=== PATIENT | male | born 1995 | race Caucasian/White ===

== ENCOUNTER 2022-12-06 11:33 | Emergency (ER) | payer OTHER, SELFPAY ==
[2022-12-06 11:37] VITALS: BP 130/86; PULSE 69; RESP 18; TEMP 36.9; O2SAT 99; BMI 23.0
--- NOTE | 2022-12-06 12:04 | CRLHL7_ITS ---
For Patients: As a result of the Century Cures Act, medical imaging exams and procedure reports are released immediately into your electronic medical record. You may view this report before your referring provider. If you have questions, please contact your health care provider. Indication: Epigastric pain, pressure for 3 days Technique: CT abdomen and pelvis without IV contrast Please note that all CT scans at this facility use dose modulation, iterative reconstruction, and/or weight-based dosing when appropriate to reduce radiation dose to as low as reasonably achievable. Comparison: None Findings: Lung bases are clear. Normal heart size. No pericardial effusion. Normal liver size and contour. No suspicious hepatic lesions. Portal veins patent. Gallbladder unremarkable. No biliary dilatation. Adrenal glands, kidneys, spleen, pancreas, stomach and duodenum appear normal. Normal course and caliber of the abdominal aorta and the IVC. The aortic side branches and renal veins appear patent. No lymphadenopathy. The bladder and prostate unremarkable. Prior left inguinal hernia repair. No bowel obstruction or bowel wall thickening. The appendix is prominent and mildly hyperemic measuring up to 1.1 cm (series 2, image 94). There is minimal adjacent fat stranding. No abscess. No perforation. No acute osseous abnormality. No body wall abnormality. Impression: Dilated, mildly hyperemic appendix with minimal adjacent fat stranding suspicious for early acute appendicitis. Please note that all CT scans at this facility use dose modulation, iterative reconstruction, and/or weight-based dosing when appropriate to reduce radiation dose to as low as reasonably achievable. Dictated by Murtaza Garland MD @ 12/06/2022 1:06:20 PM (Electronically Signed)
--- NOTE | 2022-12-06 12:05 | ED.ABDPAIN ---
HPI - Abdominal Pain General Chief Complaint: Abdominal Pain Stated Complaint: abdominal pain Time Seen by Provider: 12/06/22 11:50 History of Present Illness HPI narrative: This 27-year-old male comes in with pressure and discomfort in his upper epigastric region and more diffusely throughout his abdomen over the past few days. He arrives with normal vital signs. He does not report any heartburn symptoms. He admits that he has fearful that he might have esophageal cancer. He reports that he chews tobacco. This is what makes him fearful of that diagnosis. He states that he has not had much of an appetite in the past day. He does not report any fever, nausea, vomiting, altered bowel function. Related Data Previous Rx's Medication Instructions Recorded amoxicillin 875 mg-potassium 1 tab PO BID #20 tabs 12/06/22 clavulanate 125 mg tablet Allergies Allergy/AdvReac Type Severity Reaction Status Date / Time No Known Drug Allergies Allergy Verified 12/06/22 12:15 Review of Systems Status of ROS Reports: 10 or more systems reviewed and unremarkable except as noted in History and below Narrative Constitutional: No fevers, no weight gain or loss. Eyes: No discharge. No vision changes. HENT: No congestion, no sore throat, no ear pain. Cardiovascular: No chest pain, no palpitations. Respiratory: No shortness of breath, no wheezes, no cough. Gastrointestinal: No vomiting, no diarrhea. Abdominal pain or pressure in the upper epigastric region and diffusely around the abdomen. Genitourinary: No dysuria, no hematuria. Musculoskeletal: Normal range of motion. Skin: No rashes, no pruritis. Neurological: No dizziness, weakness, sensory change, speech change. Endo/Heme/Allergies: No bruising or bleeding. No polydipsia. Pysch: no suicidality, no anxiety, no insomnia. All other systems reviewed and are negative. PFSH PFSH Social History Smoking Status: Never smoker How often do you have a drink containing alcohol: 2-3 times a week How many standard drinks containing alcohol do you have on a typical day: 1 or 2 How often do you have six or more drinks on one occasion: Never AUDIT-C Alcohol total score: 3 Non-prescribed substance use: denies use Exam Narrative: Exam Narrative: Constitutional: Well-developed, well-nourished, no acute distress. HEENT: Normocephalic, atraumatic. Neck: Normal range of motion. Nontender. Supple. Heart: Regular. No murmurs. Normal rate. Intact distal pulses. Lungs: Clear to auscultation. No chest discomfort. No wheezes, rhonchi, or rales. Abdomen: Normal bowel sounds. Mild tenderness. No rebound tenderness. Genitalia: Deferred. Back: No midline tenderness. Normal range of motion. Extremities: Normal range of motion. No injury. Skin: Intact. No rash. Warm. No erythema or pallor. Neurologic: No altered sensation. No weakness. Alert and oriented. Psychiatric: No suicidality. No anxiety or depression. No insomnia. Nursing notes and vitals signs are reviewed. Const: Vital Signs, click to edit/add: Vital Signs - 24 hr 12/06/22 11:37 12/06/22 13:27 Temperature 98.4 F 97.4 F L Pulse Rate [Right Pulse Oximeter] 69 43 L Respiratory Rate 18 Blood Pressure [Ri ght Upper Arm] 130/86 111/68 Pulse Oximetry 99 99 Oxygen Delivery Me thod Room Air Room Air Course Vital Signs Vital signs: Initial Vital Signs Temperature 98.4 F 12/06/22 11:37 Temperature Source Temporal Artery Scan 12/06/22 11:37 Pulse Rate 69 12/06/22 11:37 Respiratory Rate 18 12/06/22 11:37 Blood Pressure 130/86 12/06/22 11:37 Blood Pressure Mean 100 12/06/22 11:37 Blood Pressure Position Sitting 12/06/22 11:37 Pulse Oximetry 99 12/06/22 11:37 Oxygen Delivery Method Room Air 12/06/22 11:37 Vital Signs Temperature 98.4 F 12/06/22 11:37 Pulse Rate 69 12/06/22 11:37 Respiratory Rate 18 12/06/22 11:37 Blood Pressure 130/86 12/06/22 11:37 Pulse Oximetry 99 12/06/22 11:37 Oxygen Delivery Method Room Air 12/06/22 11:37 Temperature 97.4 F L 12/06/22 13:27 Pulse Rate 43 L 12/06/22 13:27 Respiratory Rate 18 12/06/22 11:37 Blood Pressure 111/68 12/06/22 13:27 Pulse Oximetry 99 12/06/22 13:27 Oxygen Delivery Method Room Air 12/06/22 13:27 MDM - Abdominal Pain MDM Narrative Medical decision making narrative: This patient comes in with rather soft symptoms with the complaint of loss of appetite and some feeling of pressure in his abdomen. He arrives with normal vital signs. His primary concern is that he chews tobacco and is worried that he might have esophageal cancer. For this reason I did do his CT scan of his abdomen and pelvis. This returns with normal findings except for a mildly dilated appendix with some surrounding stranding that may indicate early acute appendicitis. The patient's exam in his right lower quadrant is rather benign. He does not have rebound tenderness or Rovsing sign. I did re-examine him an IM able again to palpate rather deeply over McBurney's point. I did speak with the surgeon on-call who stated that it would be okay for him to go home on Augmentin or if he wishes he can have his appendix removed. The patient is opting to go home on a Augmentin. His white count is 6. I did describe signs or symptoms that would indicate a need for return and re-evaluation. Lab Data Labs: Lab Results 12/06/22 Range/Units 12:10 WBC 5.95 (4.50-11.00) K/uL RBC 5.19 (4.30-5.90) m/uL Hgb 16.0 (13.5-17.5) gm/dL Hct 47.0 (37.0-53.0) % MCV 91 (80-100) fL MCH 31 (26-34) pg MCHC 34 (32-36) gm/dL RDW Coeff of Raul 11.5 (11.5-15.5) % Plt Count 250 (140-440) K/uL Neut % (Auto) 74.5 H (42.0-72.0) % Lymph % (Auto) 17.1 L (20-44) % [place] % (Auto) 5.5 (0.0-11.0) % Eos % (Auto) 1.7 (0.0-7.0) % Baso % (Auto) 0.5 (0.0-3.0) % Neut # (Auto) 4.40 (1.7-7.0) K/uL Lymph # (Auto) 1.00 (0.90-2.90) K/uL [place] # (Auto) 0.30 (0.00-0.90) K/UL Eos # (Auto) 0.10 (0.00-0.50) K/uL Baso # (Auto) 0.03 (0.00-0.30) K/uL Abs Immat Gran (auto) 0.04 (0.00-0.30) K/uL Imm/Tot Granulo (auto) 0.7 % Sodium 140 (135-149) mmol/L Potassium 4.1 (3.6-5.1) mmol/L Chloride 103 (96-114) mmol/L Carbon Dioxide 25 (20-32) mmol/L BUN 14 (5-24) mg/dL Creatinine 0.9 (0.5-1.5) mg/dL Estimated Creat Clear 126.56 Estimated GFR 120 ml/min Glucose 102 (60-115) mg/dL Calcium 9.5 (8.4-10.6) mg/dL Imaging Data CT scan - abdomen: Radiologist's impression: Dilated, mildly hyperemic appendix with minimal adjacent fat stranding suspicious for early acute appendicitis. Discharge Plan Discharge Clinical Impression: Abdominal pain Patient Disposition: Home, Self-Care Condition: Unchanged Additional Instructions: Take medication as prescribed. Avoid tobacco products. Follow up with MD or return if symptoms are persistent or worsening. Prescriptions: New amoxicillin-pot clavulanate 875-125 mg tablet 1 tab PO BID Qty: 20 0RF Follow Up/Referrals: Provider,Not a Local [Primary Care Provider] - Stand Alone Forms: [employer] Info Instructions
[2022-12-06 12:22] LABS: Basophils Absolute Auto 0.03 K/uL (0.00-0.30); Basophils Percent Auto 0.5 % (0.0-3.0); Eosinophils Percent Auto 1.7 % (0.0-7.0); Immature Granulocytes Abs Auto 0.04 K/uL (0.00-0.30); Immature Granulocytes Pct Auto 0.7 %; Lymphocytes Percent Auto 17.1 % (20-44); Mean Corpuscular HGB Conc 34 gm/dL (32-36); Mean Corpuscular Hemoglobin 31 pg (26-34); Mean Corpuscular Volume 91 fL (80-100); Monocytes Percent Auto 5.5 % (0.0-11.0); Neutrophils Percent Auto 74.5 % (42.0-72.0); Platelet Count* 250 K/uL (140-440); RDW Coefficient of Variation % 11.5 % (11.5-15.5); Red Blood Count 5.19 m/uL (4.30-5.90); White Blood Count* 5.95 K/uL (4.50-11.00)
[2022-12-06 12:30] LABS: Slide Review Reflex No
[2022-12-06 12:32] LABS: Chloride* 103 mmol/L (96-114)
[2022-12-06 12:33] LABS: Potassium* 4.1 mmol/L (3.6-5.1); Sodium* 140 mmol/L (135-149)
[2022-12-06 12:35] LABS: Creatinine* 0.9 mg/dL (0.5-1.5); Est. Creatinine Clearance* 126.56; Estimated Glomerular Filt Rate 120 ml/min
[2022-12-06 12:36] LABS: Blood Urea Nitrogen* 14 mg/dL (5-24); Calcium* 9.5 mg/dL (8.4-10.6); Carbon Dioxide* 25 mmol/L (20-32); Glucose* 102 mg/dL (60-115)
[2022-12-06 13:27] VITALS: BP 111/68; PULSE 43; TEMP 36.3; O2SAT 99
--- NOTE | 2022-12-06 13:28 | ED.NURSE ---
Pt HR noted to be 43 during vitals recheck. EKG done and shown to .
== END 2022-12-06 14:41 | disposition home or self-care (01) ==
PROVIDERS: Emergency Provider Emergency Medicine Emergency Medical Services
DX: R10.13 Epigastric pain (principal)
CPT/HCPCS: 36415; 74177; 80048; 85025; 93005; 99284; Q9967

== ENCOUNTER 2022-12-08 00:18 | Day surgery (SDC) | payer OTHER, SELFPAY ==
[2022-12-08] VITALS (19 sets, daily range): BP systolic 109–129; BP diastolic 61–82; PULSE 36–75; RESP 14–18; TEMP 36.2–36.7; O2SAT 97–100
--- NOTE | 2022-12-08 01:13 | CRLHL7_ITS ---
For Patients: As a result of the Century Cures Act, medical imaging exams and procedure reports are released immediately into your electronic medical record. You may view this report before your referring provider. If you have questions, please contact your health care provider. INDICATION: Worsening appendicitis. TECHNIQUE: CT abdomen and pelvis acquired with 100 cc Omnipaque 350 IV contrast. COMPARISON: December 06, 2022. FINDINGS: Lower chest: Scattered atelectasis. Liver: Unremarkable. Normal in size and attenuation. No suspicious masses. Gallbladder and bile ducts: Unremarkable. No stones or inflammation. No biliary dilatation. Pancreas: Unremarkable. No mass or inflammation. Spleen: Unremarkable. Normal in size. No masses. Adrenal glands: Unremarkable. No nodules. Kidneys: Unremarkable. No suspicious masses, stones, or hydronephrosis. GI tract: No bowel obstruction. Re-demonstration of similar mildly enlarged/hyperemic appendix with minimal fat stranding. Vasculature: Abdominal aorta is normal in caliber. Mesenteric arteries are patent. Lymph nodes: No lymphadenopathy. Peritoneum/Abdominal Wall: Unremarkable. No sign of mass or infiltration. No free air or significant free fluid. Pelvis: Unremarkable. Bones: Unremarkable for age. IMPRESSION: Similar appearing prominent/hyperemic appendix with fat stranding thought to represent early appendicitis. No drainable fluid collections or significant interval change when compared to prior study. Please note that all CT scans at this facility use dose modulation, iterative reconstruction, and/or weight-based dosing when appropriate to reduce radiation dose to as low as reasonably achievable. Dictated by nAtoine Morrell MD @ 12/08/2022 2:23:29 AM (Electronically Signed)
--- NOTE | 2022-12-08 01:16 | ED_ITS ---
HPI - General Adult General Chief complaint: Abdominal Pain Stated complaint: appendicitis getting worse Time Seen by Provider: 12/08/22 01:00 Source: patient and family Mode of arrival: ambulatory History of Present Illness HPI narrative: 27-year-old male presents to the emergency department with worsening abdominal pain. He was evaluated a little over 24 hours ago, was having epigastric area pain at that time. CT scan did show an early appendicitis. Since he was not tender over the lower abdomen, decision was made to start him on Augmentin and see where things progress. He reports that over the last few hours he has started to have some tenderness in the right lower quadrant area. There is no nausea or vomiting. No diarrhea, no blood in his stools. No fever. He has not tried Tylenol or ibuprofen to help with his symptoms. Last meal was 6:00 p.m. on 12/07. Does not use anticoagulants. Has tolerated general anesthesia in the past with no complications. No family history of anesthesia complications, no history of DVT or PE. Nonsmoker but does occasionally chew tobacco. No history of chronic lung disease or asthma. No long-term health problems. No prescription medications. Prior surgical history notable for inguinal hernia repairs back in July, uncomplicated as well as wisdom tooth extraction. Related Data Previous Rx's Medication Instructions Recorded amoxicillin 875 mg-potassium 1 tab PO BID #20 tabs 12/06/22 clavulanate 125 mg tablet Allergies Allergy/AdvReac Type Severity Reaction Status Date / Time No Known Drug Allergies Allergy Verified 12/06/22 12:15 [facility] Social History Smoking Status: Never smoker Do you use any of these nicotine containing products: None How often do you have a drink containing alcohol: 2-3 times a week How many standard drinks containing alcohol do you have on a typical day: 1 or 2 How often do you have six or more drinks on one occasion: Never AUDIT-C Alcohol total score: 3 Non-prescribed substance use: denies use service: No Exam Const: Vital Signs, click to edit/add: Vital Signs - 24 hr 12/08/22 00:23 12/08/22 05:28 12/08/22 05:33 Temperature 98.0 F 97.6 F Pulse Rate [Left F emoral] 61 54 L Pulse Rate [Right Pulse Oximeter] 54 L Respiratory Rate 16 16 Blood Pressure [Ri ght Upper Arm] 122/77 111/61 Pulse Oximetry 100 100 Oxygen Delivery Me thod Room Air Room Air Documenting provider has reviewed patient's vital signs: yes Common normals: no apparent distress and alert General appearance: cooperative, comfortable and well kempt Orientation/consciousness: Yes awake HENMT: Common normals: normocephalic and head/scalp atraumatic Head and scalp: normocephalic and atraumatic Face and sinus: normal facial exam Mouth: oral and palatal mucosa normal Throat: posterior oropharynx normal Eye: Common normals: PERRL and conjunctivae normal Conjunctiva: conjunctiva(e) normal Pupil: PERRL Neck & C-Spine: Common normals: full ROM and no lymphadenopathy Resp: Common normals: normal respiratory effort, no use of accessory muscles and clear to auscultation bilaterally Effort & inspection: able to speak in complete sentences Auscultation: clear to auscultation bilaterally Cardio: Common normals: regular rate, regular rhythm, S1 normal heart sound, S2 normal heart sound and no murmurs Rate: regular rate Rhythm: regular rhythm Heart sounds: S1 normal and S2 normal GI: Common normals: Normal to inspection, nondistended, normoactive bowel sounds present, soft to palpation and no masses Palpation: soft Other: Mildly tender to right lower quadrant. Certainly no rebound tenderness or guarding. Extremity: Common normals: normal to inspection, full ROM and normal capillary refill Neuro: Sensorium/orientation: awake and alert Speech: speech normal Gait (neuro): normal gait Motor exam: no tremor noted and no movement abnormalities noted Psych: Appearance: well kempt Activity/motor behavior: appropriate eye contact Mood and affect: euthymic mood Insight: insight good Judgement: judgment good Skin: Common normals: no rashes or lesions noted General skin exam: no rashes or lesions noted Course Course Hospital Course: Differential diagnosis including appendicitis, gastroenteritis, gastritis, pancreatitis, musculoskeletal injury, shingles, among others. I spoke with Dr. Vargas, general surgery. She would like to go ahead and repeat the CT as well as blood work. This will be done. She does make it sound as though we may have difficulty squeezing in his surgical case in the morning if needed. Because of this I would like to go ahead and start some Zosyn, LR, he will be made NPO. Prior note from 12/06 reviewed. He declines pain medication or anti nausea medication at this time. Reevaluation(s) Reevaluation #1: Patient continues to have no pain. He has completed Zosyn, will continue on maintenance fluid. Surgeon has requested update at 4:30 a.m. with the results with intent to take him to the OR shortly later. He is medically cleared at this time. No additional perioperative recommendations. Vital Signs Vital signs: Initial Vital Signs Temperature 98.0 F 12/08/22 00:23 Temperature Source Temporal Artery Scan 12/08/22 00:23 Pulse Rate 61 12/08/22 00:23 Pulse Rhythm Regular 12/08/22 00:23 Respiratory Rate 16 12/08/22 00:23 Blood Pressure 122/77 12/08/22 00:23 Blood Pressure Mean 92 12/08/22 00:23 Blood Pressure Position Sitting 12/08/22 00:23 Pulse Oximetry 100 12/08/22 00:23 Oxygen Delivery Method Room Air 12/08/22 00:23 Vital Signs Temperature 98.0 F 12/08/22 00:23 Pulse Rate 61 12/08/22 00:23 Respiratory Rate 16 12/08/22 00:23 Blood Pressure 122/77 12/08/22 00:23 Pulse Oximetry 100 12/08/22 00:23 Oxygen Delivery Method Room Air 12/08/22 00:23 Temperature 97.6 F 12/08/22 05:28 Pulse Rate 54 L 12/08/22 05:33 Respiratory Rate 16 12/08/22 05:28 Blood Pressure 111/61 12/08/22 05:28 Pulse Oximetry 100 12/08/22 05:28 Oxygen Delivery Method Room Air 12/08/22 05:28 Medical Decision Making Lab Data Lab results reviewed: Yes I reviewed the patient's lab results Lab results narrative: All reassuring. Labs: Lab Results 12/08/22 Range/Units 01:05 WBC 5.99 (4.50-11.00) K/uL RBC 4.89 (4.30-5.90) m/uL Hgb 15.3 (13.5-17.5) gm/dL Hct 44.2 (37.0-53.0) % MCV 90 (80-100) fL MCH 31 (26-34) pg MCHC 35 (32-36) gm/dL RDW Coeff of Raul 11.4 L (11.5-15.5) % Plt Count 226 (140-440) K/uL Neut % (Auto) 62.5 (42.0-72.0) % Lymph % (Auto) 23.4 (20-44) % [place] % (Auto) 9.0 (0.0-11.0) % Eos % (Auto) 3.3 (0.0-7.0) % Baso % (Auto) 0.3 (0.0-3.0) % Neut # (Auto) 3.74 (1.7-7.0) K/uL Lymph # (Auto) 1.40 (0.90-2.90) K/uL [place] # (Auto) 0.50 (0.00-0.90) K/UL Eos # (Auto) 0.20 (0.00-0.50) K/uL Baso # (Auto) 0.02 (0.00-0.30) K/uL Abs Immat Gran (auto) 0.09 (0.00-0.30) K/uL Imm/Tot Granulo (auto) 1.5 % Sodium 137 (135-149) mmol/L Potassium 3.6 (3.6-5.1) mmol/L Chloride 104 (96-114) mmol/L Carbon Dioxide 23 (20-32) mmol/L BUN 14 (5-24) mg/dL Creatinine 0.8 (0.5-1.5) mg/dL Estimated GFR 124 ml/min Glucose 92 (60-115) mg/dL Lactate 0.7 (0.5-1.9) mmol/L Calcium 8.9 (8.4-10.6) mg/dL C-Reactive Protein < 0.5 L (0.5-1.0) mg/dL Imaging Data CT scan - abdomen: Attestation: I have reviewed the pertinent imaging results. My impression: Stable early appendicitis, no signs of rupture or fluid collection Radiologist's impression: IMPRESSION: Similar appearing prominent/hyperemic appendix with fat stranding thought to represent early appendicitis. No drainable fluid collections or significant interval change when compared to prior study. Discharge Plan Discharge Clinical Impression: Acute appendicitis Patient Disposition: XFER to OR Condition: Stable
[2022-12-08 01:34] LABS: Lactate* 0.7 mmol/L (0.5-1.9)
[2022-12-08] MEDS: LACTATED RINGERS 1000 ML 1,000 ML 200 ML IV (01:34)
[2022-12-08 01:36] LABS: Basophils Absolute Auto 0.02 K/uL (0.00-0.30); Basophils Percent Auto 0.3 % (0.0-3.0); Eosinophils Percent Auto 3.3 % (0.0-7.0); Hematocrit 44.2 % (37.0-53.0); Hemoglobin* 15.3 gm/dL (13.5-17.5); Immature Granulocytes Abs Auto 0.09 K/uL (0.00-0.30); Immature Granulocytes Pct Auto 1.5 %; Lymphocytes Percent Auto 23.4 % (20-44); Mean Corpuscular HGB Conc 35 gm/dL (32-36); Mean Corpuscular Hemoglobin 31 pg (26-34); Mean Corpuscular Volume 90 fL (80-100); Neutrophils Absolute Auto 3.74 K/uL (1.7-7.0); Neutrophils Percent Auto 62.5 % (42.0-72.0); Platelet Count* 226 K/uL (140-440); RDW Coefficient of Variation % 11.4 % (11.5-15.5); Red Blood Count 4.89 m/uL (4.30-5.90); White Blood Count* 5.99 K/uL (4.50-11.00)
[2022-12-08 01:37] LABS: Slide Review Reflex No
[2022-12-08 01:50] LABS: Chloride* 104 mmol/L (96-114); Potassium* 3.6 mmol/L (3.6-5.1); Sodium* 137 mmol/L (135-149)
[2022-12-08 01:52] LABS: Creatinine* 0.8 mg/dL (0.5-1.5); Estimated Glomerular Filt Rate 124 ml/min
[2022-12-08 01:53] LABS: Blood Urea Nitrogen* 14 mg/dL (5-24); Carbon Dioxide* 23 mmol/L (20-32)
[2022-12-08 01:54] LABS: Calcium* 8.9 mg/dL (8.4-10.6); Glucose* 92 mg/dL (60-115)
[2022-12-08] MEDS: PIPERACILLIN/TAZOBACTAM 3.375 GM in 0.9 % SODIUM CHLORIDE Mini-bag 100 ML IVPB (01:55)
[2022-12-08 01:57] LABS: C Reactive Protein* < 0.5 mg/dL (0.5-1.0)
--- NOTE | 2022-12-08 05:39 | PM.GSCN ---
History of Present Illness Consult details Date Seen: 12/08/22 Consult date: 12/08/22 Narrative: 27-year-old male presented to emergency room with abdominal pain and I was asked by Dr. Cortes to see him in consultation. Patient initially presented on Thursday with ?indigestion?. Patient complained of heartburn and loss of appetite for 3 days. He had some discomfort in epigastrium. His WBC was found to be normal and an abdominal CT was obtained that showed minimal inflammation near the appendix. At that time patient did not have significant tenderness to palpation in his abdomen. Choices of treatment with antibiotics or surgery were presented to the patient, and patient elected to have antibiotics. Patient was discharged home and for 24 hours stated that his pain improved. However yesterday the pain got significantly worse. He described is at as episodes of sharp pain. The pain now was located in the right lower quadrant. He is not sure what was making the pain worse or better. He continued to have anorexia. He denies any fevers. Upon his workup in the emergency room his WBC remained normal. An abdominal CT was repeated and showed prominent wall enhancing appendix with minimal periappendiceal inflammation. The small and large intestine was without any evidence of obstruction. Review of Systems Narrative: General: no fevers HENT: no problems swallowing CV: no shortness of breath Resp: no cough GI: See above : no dysuria, no increased urinary frequency, no hematuria Skin: no new rashes Musculoskeletal: no back pain Neuro: no muscle weakness Psyche: no depression, no anxiety PFSH PFSH Social History Smoking Status: Never smoker Do you use any of these nicotine containing products: None How often do you have a drink containing alcohol: 2-3 times a week How many standard drinks containing alcohol do you have on a typical day: 1 or 2 How often do you have six or more drinks on one occasion: Never AUDIT-C Alcohol total score: 3 Non-prescribed substance use: denies use service: No Meds Home Medications and Allergies Allergies Allergy/AdvReac Type Severity Reaction Status Date / Time No Known Drug Allergies Allergy Verified 12/06/22 12:15 Exam Narrative: Exam Narrative: General appearance: Alert, cooperative, and in no distress Pulmonary: Chest symmetric, lungs clear bilaterally Cardiovascular Heart: Regular rate and rhythm, S1, S2, no murmurs/rubs/gallops Gastrointestinal Abdominal: soft, not distended, tender to palpation in epigastrium and right lower quadrant with minimal rebound tenderness. Skin: Normal skin color, texture, and turgor. No rashes or lesions. Psychiatric: Alert, cooperative, normal affect. Const: Vital Signs, click to edit/add: Vital Signs - 24 hr 12/08/22 00:23 12/08/22 05:28 12/08/22 05:33 Temperature 98.0 F 97.6 F Pulse Rate [Left F emoral] 61 54 L Pulse Rate [Right Pulse Oximeter] 54 L Respiratory Rate 16 16 Blood Pressure [Ri ght Upper Arm] 122/77 111/61 Pulse Oximetry 100 100 Oxygen Delivery Me thod Room Air Room Air Results Labs Labs: Abnormal lab results 12/08/22 Range/Units 01:05 RDW Coeff of Raul 11.4 L (11.5-15.5) % C-Reactive Protein < 0.5 L (0.5-1.0) mg/dL Diabetes panel 12/08/22 Range/Units 01:05 Sodium 137 (135-149) mmol/L Potassium 3.6 (3.6-5.1) mmol/L Chloride 104 (96-114) mmol/L Carbon Dioxide 23 (20-32) mmol/L BUN 14 (5-24) mg/dL Creatinine 0.8 (0.5-1.5) mg/dL Glucose 92 (60-115) mg/dL Calcium 8.9 (8.4-10.6) mg/dL Calcium panel 12/08/22 Range/Units 01:05 Calcium 8.9 (8.4-10.6) mg/dL Pituitary panel 12/08/22 Range/Units 01:05 Sodium 137 (135-149) mmol/L Potassium 3.6 (3.6-5.1) mmol/L Chloride 104 (96-114) mmol/L Carbon Dioxide 23 (20-32) mmol/L BUN 14 (5-24) mg/dL Creatinine 0.8 (0.5-1.5) mg/dL Glucose 92 (60-115) mg/dL Calcium 8.9 (8.4-10.6) mg/dL Adrenal panel 12/08/22 Range/Units 01:05 Sodium 137 (135-149) mmol/L Potassium 3.6 (3.6-5.1) mmol/L Chloride 104 (96-114) mmol/L Carbon Dioxide 23 (20-32) mmol/L BUN 14 (5-24) mg/dL Creatinine 0.8 (0.5-1.5) mg/dL Glucose 92 (60-115) mg/dL Calcium 8.9 (8.4-10.6) mg/dL All other labs normal. Assessment and Plan Assessment and plan (1) Abdominal pain: Status: Acute Plan 27-year-old male presents with abdominal pain that is suspicious for subacute appendicitis. I discussed with the patient and his his laboratory and imaging findings. Patient's symptoms are not typical of appendicitis given the duration of his symptoms for several days. However his abdominal CT today shows increased prominence of the appendix when compared to the CT done 2 days ago. His white count remains normal. Since patient failed outpatient treatments antibiotics, I recommended to proceed with laparoscopic appendectomy. The procedure was discussed in detail. The risks associated procedure including infection, bleeding, injury to intra-abdominal organs, and the need for additional procedures were all discussed with the patient, he agreed to proceed.
[2022-12-08] MEDS: CEFAZOLIN 1 GM inj IVP (05:55)
[2022-12-08] MEDS: BUPIVACAINE 0.25% 30 ML INJECTION (06:05)
--- NOTE | 2022-12-08 06:53 | PM.GSPRC ---
Operative Note Date of procedure: 12/08/22 Pre-op diagnosis: 1. Subacute appendicitis. Post-op diagnosis: Same Type of Procedure: 1. Laparoscopic appendectomy. Indications: 27-year-old male presented to emergency room with several days of abdominal pain that started in epigastrium and migrated there was her quadrant. Patient had anorexia but denies fevers. On his initial presentation to the emergency room 2 days ago he was found to have a normal WBC. An abdominal CT was obtained that showed minimal inflammatory changes near wall enhancing appendix. Patient was discharged home on oral antibiotics. His pain improved for 24 hours but then returned and was more severe. Patient re-presented to the emergency room last night with right lower quadrant abdominal pain. A repeat CT showed wall enhancing appendix with minimal periappendiceal inflammation with no periappendiceal abscess. On clinical exam patient had tenderness to palpation in epigastrium and right lower quadrant with no peritoneal signs. Given patient's clinical history and his failure with antibiotic treatment, laparoscopic appendectomy was recommended. The procedure was discussed in detail. The risks associated procedure including infection, bleeding, injury to intra-abdominal organs were all discussed with the patient, he agreed to proceed. Procedure Description: After discussing the risks and benefits of the procedure, the patient signed informed consent.? The operative site was marked and the patient was brought to the operating room and placed on the operating table in supine position.? Care was taken to pad the patient's pressure points.?? The patient was then intubated by anesthesia.?? The operative site was then prepped and draped in the usual sterile fashion.? A time-out was then performed. A 5-mm laparoscopy port was placed in the left upper quadrant guided by a 5-mm laparoscope placed into a translucent trochar. Passage through the layers of the abdominal wall was visualized with the laparoscope. A pneumoperitoneum was established. A 30-degree 5-mm laparoscope was advanced into the abdomen. The abdomen was briefly surveyed, and there was no evidence of diffuse peritonitis. A 12-mm port and a 5-mm port were placed in the left low quadrant and suprapubically, respectively, under direct visualization by laparoscope. Left upper quadrant entrance port was then examined intraabdominally by placing the camera through the left lower quadrant port and no intraabdominal injury was seen. The patient was placed in Trendelenburg position, allowing the abdominal contents to shift cephalad. The small bowel was moved toward the midline in the abdomen and this allowed for identification of the appendix. The appendiceal tip appeared to be dilated, fatty in appearance, and hyperemic. The remainder of the appendix appeared normal. The appendix was grasped and dissected from the peritoneum using Harmonic scalpel. The appendiceal artery was skeletonized with Harmonic scalpel. The appendiceal artery was then clipped with two 5 mm clips on the patient's side and divided with Harmonic scalpel on the specimen side. The base of the appendix was also skeletonized with the Harmonic scalpel. A vascular load Endo-ANITHA stapler was advanced through the 12-mm port into the abdomen and appendix was stapled off at its base. The appendix was then placed in an endoscopic retrieval bag and extracted from the abdomen through the 12-mm port. The abdomen was surveyed for hemostasis. And no bleeding was seen. The 12-mm port was withdrawn and the fascial defect was closed with a [id number] 0-0 Vicryl stitch. This closure was examined intra-abdominally, and no intra-abdominal structures were incarcerated in the closure. The 5-mm port was removed under direct visualization. The left upper quadrant port was used to evacuate the pneumoperitoneum and then withdrawn. The skin incisions were closed with 4-0 monocryl. Steri-Strips were applied over the incisions. All counts were correct at the end of the case. The patient tolerated this procedure well and was transferred to PACU in stable condition. Findings: Dilated appendiceal tip with no surrounding purulence. Anesthesia: GETA Surgeon: Christoph Crowell MD Estimated blood loss (mL): 5 Specimen: Appendix Condition: stable Disposition: PACU
[2022-12-08] MEDS: MEPERIDINE 25 MG/ML INJ 12.5 MG IVP (06:58)
--- NOTE | 2022-12-08 07:04 | W.ANESCHARGE ---
Anesthesia Charges Start Date/Time Anesthesia Start Date: 12/08/22 Anesthesia Start Time: 05:48 Stop Date/Time Anesthesia Stop Date: 12/08/22 Anesthesia Stop Time: 06:57 Summary Emergency: [employer]
[2022-12-08] MEDS: LACTATED RINGERS 1000 ML 1,000 ML 35 ML IV (07:15)
--- NOTE | 2022-12-08 07:57 | SUR.PHASEI ---
patient came into pacu with 800cc lr. infused all 800 from bag in phase 1
--- NOTE | 2022-12-08 08:57 | SUR.PHASEII ---
Consulted with DEON re: pt HR - specifically bradycardia. Dr. Walters aware, does not want RN to treat postoperatively. Dr. Walters gave verbal order for patient discharge from phase II to home.
--- NOTE | 2022-12-08 09:07 | SUR.PHASEII ---
Pt tolerated water, did not care for food. Added bandaid over steri strip x 1.
--- NOTE | 2022-12-08 09:33 | SUR.PHASEII ---
Pt verbalized readiness to be discharged and understanding of discharge instructions.
== END 2022-12-08 09:34 | disposition home or self-care (01) ==
LOC: ED 01:15 → SS 05:00
PROVIDERS: Emergency Provider Family Medicine; Visit Provider Surgery
PROC: 0DTJ4ZZ Resection of Appendix, Percutaneous Endoscopic Approach (ICD-10-PCS; CPT 44970; principal; 2022-12-08 05:30)
DX: K35.80 Unspecified acute appendicitis (principal)
CPT/HCPCS: 44970; 00840; 36415; 74177; 80048; 83605; 85025; 86140; 88304; 99140; 99284; 99285; J0330; J0665; J0690; J1100; J1200; J1885; J2175; J2250; J2405; J2543; J2710; J3010; J3490; J7120; Q9967